=== PATIENT | female | born 1955 | race Caucasian/White ===

== ENCOUNTER → 2017-09-21 | Outpatient (REF) ==
[~2017-09-21] MED LIST: DOXY-179 PO; [UNRECOGNIZED DRUG - REMARK]
== END ==
DX: Z02.9 Encounter for administrative examinations, unspecified (principal)

== ENCOUNTER → 2017-09-28 | Outpatient (CLI) | payer OTHER ==
--- NOTE | 2017-09-29 08:12 | RADIOLOGY IMAGING REPORT ---
FACILITY: [facility] [place] PATIENT NAME: DONNY LEE : [id number] MR: [id number] V: [id number] EXAM DATE: ORDERING PHYSICIAN: JUAN JOSÉ BAHENA TECHNOLOGIST: Lesa Mayfield PROCEDURE:BILATERAL DIGITAL SCREENING MAMMOGRAM WITH CAD ASSISTED INTERPRETATION & 3D TOMOSYNTHESIS COMPARISON:Prior mammograms 09/23/12. INDICATIONS:SCREENING FINDINGS: Mildly heterogeneous fibroglandular tissue is seen throughout the breasts. The parenchymal pattern has remained stable allowing for difference in mammographic technique & patient positioning. There is no evidence of malignant appearing mass, malignant appearing calcifications or other secondary sign of malignancy in either breast. DIAGNOSTIC CATEGORY 1--NEGATIVE. RECOMMENDATIONS: ROUTINE MAMMOGRAM AND CLINICAL EVALUATION. IMPRESSION: BIRADS 1: Negative No significant abnormality is seen. Dictated by: Dayna Cortés M.D. on 09/28/2017 at 11:18 Transcribed by: SANDEEP on 09/28/2017 at 14:29 Approved by: Dayna Cortés M.D. on 09/29/2017 at 8:12 [facility]
== END ==
LOC: MAMO 01:11
PROVIDERS: ATTEND Internal Medicine
DX: Z12.31 Encounter for screening mammogram for malignant neoplasm of breast (principal)
CPT/HCPCS: 77063; 77067

== ENCOUNTER → 2017-11-05 | Outpatient (CLI) | payer OTHER | LOC: LAB 10:58 | PROVIDERS: ATTEND Internal Medicine | DX: R94.6 Abnormal results of thyroid function studies (principal) | CPT/HCPCS: 36415; 84436; 84443; 84481 ==

== ENCOUNTER 2018-07-01 15:02 | Emergency (ER) | payer OTHER ==
[~2018-07-01 15:02] MED LIST changes: +HYDR30CR10 TP
[2018-07-01] MEDS ORDERED: NS(*) 0.9% 1000 ML BAG 1,000 ML IV ONE (15:25)
[2018-07-01 15:30] LABS: PLATELET COUNT, AUTOMATED 311 K/uL (150-450)
--- NOTE | 2018-07-01 15:42 | EKG ---
FACILITY: [facility] [place] PATIENT NAME: DONNY LEE : [id number] MR: [id number] V: [id number] EXAM DATE: ORDERING PHYSICIAN: KELVIN BUTT TECHNOLOGIST: Test Reason : Altered mental status Blood Pressure : / mmHG Vent. Rate : 095 BPM Atrial Rate : 095 BPM P-R Int : 102 ms QRS Dur : 094 ms QT Int : 364 ms P-R-T Axes : 051 044 021 degrees QTc Int : 457 ms Sinus rhythm with short CA Nonspecific ST and T wave abnormality Abnormal ECG When compared with ECG of 17-SEP-2016 09:03, Previous ECG has undetermined rhythm, needs review Nonspecific T wave abnormality, worse in Anterior leads Referred By: Confirmed By:. READING PANEL
--- NOTE | 2018-07-01 15:47 | ER Report ---
History and Physical Time Seen By MD: 15:10 Hx. of Stated Complaint: disoriented, [place] not remember [place] does not recall an injury HPI/ROS CHIEF COMPLAINT: Altered mental status HISTORY OF PRESENT ILLNESS: Patient reports that she has been on the hCG diet and along with hCG drops is taking in approximately 500 tanner per day. In the face of this, she was skiing today and had not taken a fall, but as she was going to get lunch, became confused. She had an approximately 15 minute period where she did not recall where she was or what she was doing. Ultimately, she was called on the phone and had to describe where she was so that the family could come and find her. They decided to present to the emergency department. At this point, patient is no longer confused and has eaten some food, however she still does not recall the about [place] At no time did she or her family note slurred speech, focal weakness, fall, headache, chest pain, shortness breath, or any other concerning symptoms. She has never had an episode like this before that she recalls. REVIEW OF SYSTEMS: Constitutional: No fever, no chills. Eyes: No discharge. ENT: No sore throat. Cardiovascular: No chest pain, no palpitations. Respiratory: No cough, no shortness of breath. Gastrointestinal: No abdominal pain, no vomiting. Genitourinary: No hematuria. Musculoskeletal: No back pain. Skin: No rashes. Neurological: No headache. Remainder of the 14 system rev: Yes Allergies: Coded Allergies: prochlorperazine (Verified Allergy, Intermediate, Extrapyramidal rxn, 09/23/17) Home Meds Active Scripts Hydrocortisone 2.5 % 30 GM CREAM (Hydrocortisone 2.5 % 30 GM CREAM) 2.5 % Cream.appl, 1 CASEY TP BID for 30 Days, #1 TUBE 0 Refills Prov:CARLOS MANUEL BOONE NPC 03/31/18 Reviewed Nurses Notes: Yes Smoking Status: Never Smoker Exposure to Second Hand Smoke?: Yes (childhood, father smoked) Hx Substance Use Disorder: No Hx Alcohol Use: No Constitutional Vital Sign - Last 24 Hours 07/01/18 15:07 Temp 97.7 Pulse 105 Resp 16 B/P (MAP) 152/95 Pulse Ox 97 O2 Delivery Room Air Physical Exam General Appearance: The patient is alert, has no immediate need for airway protection and no signs of toxicity. Eyes: Pupils equal and round no pallor or injection. ENT, Mouth: Mucous membranes are moist. Respiratory: There are no retractions, lungs are clear to auscultation. Cardiovascular: Regular rate and rhythm. Gastrointestinal: Abdomen is soft and non tender, no masses, bowel sounds normal. Neurological: alert, oriented, moves all ext, no focal weakness, cn ii-xii intact, nl fnf, no ddk, nl hsk. Warm and dry, no rashes. Musculoskeletal: Neck is supple non tender. Extremities are nontender, nonswollen and have full range of motion. DIFFERENTIAL DIAGNOSIS: After history and physical exam differential diagnosis was considered for cva, hypoglycemia, electrolyte abnormality, arrhythmia, acs, or other emergent etiology. Medical Decision Making Data Points Result Diagram: 07/01/18 1512 07/01/18 1512 Laboratory Hematology Test 07/01/18 15:12 07/01/18 15:30 Red Blood Count 5.22 M/uL (4.17-5.56) Mean Corpuscular Volume 88.5 fL (80.0-96.0) Mean Corpuscular Hemoglobin 29.6 pg (26.0-33.0) Mean Corpuscular Hemoglobin Concent 33.5 g/dL (32.0-36.0) Red Cell Distribution Width 13.4 % (11.5-14.5) Mean Platelet Volume 7.6 fL (7.2-11.1) Neutrophils (%) (Auto) 69.0 % (39.4-72.5) Lymphocytes (%) (Auto) 22.5 % (17.6-49.6) Monocytes (%) (Auto) 6.8 % (4.1-12.4) Eosinophils (%) (Auto) 1.0 % (0.4-6.7) Basophils (%) (Auto) 0.7 % (0.3-1.4) Nucleated RBC Relative Count (auto) 0.0 /100WBC Neutrophils # (Auto) 5.0 K/uL (2.0-7.4) Lymphocytes # (Auto) 1.6 K/uL (1.3-3.6) Monocytes # (Auto) 0.5 K/uL (0.3-1.0) Eosinophils # (Auto) 0.1 K/uL (0.0-0.5) Basophils # (Auto) 0.1 K/uL (0.0-0.1) Nucleated RBC Absolute Count (auto) 0.00 K/uL Sodium Level 139 mmol/L (137-145) Potassium Level 3.5 mmol/L (3.5-5.0) Chloride Level 104 mmol/L (98-107) Carbon Dioxide Level 25 mmol/L (22-31) Blood Urea Nitrogen 13 mg/dl (7-18) Creatinine 1.00 mg/dl (0.52-1.04) Glomerular Filtration Rate Calc 56.0 Random Glucose 78 mg/dl (75-110) Calcium Level 9.6 mg/dl (8.4-10.2) Magnesium Level 2.1 mg/dl (1.7-2.2) Total Bilirubin 0.3 mg/dl (0.2-1.3) Aspartate Amino Transf (AST/SGOT) 30 U/L (0-35) Alanine Aminotransferase (ALT/SGPT) 28 U/L (0-56) Alkaline Phosphatase 67 U/L (0-126) Total Protein 7.8 g/dl (6.3-8.2) Albumin 4.9 g/dl (3.5-5.0) Urine Color Colorless Urine Clarity Clear Urine pH 7.0 pH (4.8-9.5) Urine Specific [place] 1.002 Urine Protein Negative mg/dL (NEGATIVE) Urine Glucose (UA) Negative mg/dL (NEGATIVE) Urine Ketones Negative mg/dL (NEGATIVE) Urine Blood Negative (NEGATIVE) Urine Nitrite Negative (NEGATIVE) Urine Bilirubin Negative (NEGATIVE) Urine Urobilinogen Negative mg/dL (0.2-1.9) Urine Leukocyte Esterase Negative (NEGATIVE) Urine RBC <1 /HPF (0-2/HPF) Urine WBC None /HPF (0-5/HPF) Urine Squamous Epithelial Cells None /LPF (</=FEW) Urine Bacteria Negative /HPF (NONE-FEW) Urine Mucus None /HPF (NONE-FEW) Chemistry Test 07/01/18 15:12 07/01/18 15:30 White Blood Count 7.2 k/uL (4.5-11.0) Red Blood Count 5.22 M/uL (4.17-5.56) Hemoglobin 15.5 g/dL (12.0-16.0) Hematocrit 46.2 % (34.0-47.0) Mean Corpuscular Volume 88.5 fL (80.0-96.0) Mean Corpuscular Hemoglobin 29.6 pg (26.0-33.0) Mean Corpuscular Hemoglobin Concent 33.5 g/dL (32.0-36.0) Red Cell Distribution Width 13.4 % (11.5-14.5) Platelet Count 311 K/uL (150-450) Mean Platelet Volume 7.6 fL (7.2-11.1) Neutrophils (%) (Auto) 69.0 % (39.4-72.5) Lymphocytes (%) (Auto) 22.5 % (17.6-49.6) Monocytes (%) (Auto) 6.8 % (4.1-12.4) Eosinophils (%) (Auto) 1.0 % (0.4-6.7) Basophils (%) (Auto) 0.7 % (0.3-1.4) Nucleated RBC Relative Count (auto) 0.0 /100WBC Neutrophils # (Auto) 5.0 K/uL (2.0-7.4) Lymphocytes # (Auto) 1.6 K/uL (1.3-3.6) Monocytes # (Auto) 0.5 K/uL (0.3-1.0) Eosinophils # (Auto) 0.1 K/uL (0.0-0.5) Basophils # (Auto) 0.1 K/uL (0.0-0.1) Nucleated RBC Absolute Count (auto) 0.00 K/uL Glomerular Filtration Rate Calc 56.0 Calcium Level 9.6 mg/dl (8.4-10.2) Magnesium Level 2.1 mg/dl (1.7-2.2) Total Bilirubin 0.3 mg/dl (0.2-1.3) Aspartate Amino Transf (AST/SGOT) 30 U/L (0-35) Alanine Aminotransferase (ALT/SGPT) 28 U/L (0-56) Alkaline Phosphatase 67 U/L (0-126) Total Protein 7.8 g/dl (6.3-8.2) Albumin 4.9 g/dl (3.5-5.0) Urine Color Colorless Urine Clarity Clear Urine pH 7.0 pH (4.8-9.5) Urine Specific [place] 1.002 Urine Protein Negative mg/dL (NEGATIVE) Urine Glucose (UA) Negative mg/dL (NEGATIVE) Urine Ketones Negative mg/dL (NEGATIVE) Urine Blood Negative (NEGATIVE) Urine Nitrite Negative (NEGATIVE) Urine Bilirubin Negative (NEGATIVE) Urine Urobilinogen Negative mg/dL (0.2-1.9) Urine Leukocyte Esterase Negative (NEGATIVE) Urine RBC <1 /HPF (0-2/HPF) Urine WBC None /HPF (0-5/HPF) Urine Squamous Epithelial Cells None /LPF (</=FEW) Urine Bacteria Negative /HPF (NONE-FEW) Urine Mucus None /HPF (NONE-FEW) Urinalysis Test 07/01/18 15:30 Urine Color Colorless Urine Clarity Clear Urine pH 7.0 pH (4.8-9.5) Urine Specific [place] 1.002 Urine Protein Negative mg/dL (NEGATIVE) Urine Glucose (UA) Negative mg/dL (NEGATIVE) Urine Ketones Negative mg/dL (NEGATIVE) Urine Blood Negative (NEGATIVE) Urine Nitrite Negative (NEGATIVE) Urine Bilirubin Negative (NEGATIVE) Urine Urobilinogen Negative mg/dL (0.2-1.9) Urine Leukocyte Esterase Negative (NEGATIVE) Urine RBC <1 /HPF (0-2/HPF) Urine WBC None /HPF (0-5/HPF) Urine Squamous Epithelial Cells None /LPF (</=FEW) Urine Bacteria Negative /HPF (NONE-FEW) Urine Mucus None /HPF (NONE-FEW) EKG/Imaging EKG Interpretation 12 lead EKG: Rhythm: normal sinus rhythm [place]: normal QRS: normal ST segments: normal short NV, borderline qt, no st elevations or depressions. Monitor Interpretation: Normal Sinus Rhythm ED Course/Re-evaluation ED Course 63-year-old female presents after skiing all morning and having episode of confusion while she was in the cafeteria and gathering food. This lasted about 15 minutes and resolve spontaneously (or as she ate), and has not repeated in the emergency department. Detailed neurologic exam is unremarkable. There are no focal findings. Labs are normal. EKG is nonischemic. Repeat blood sugar as patient has not had any sugar containing intake in the emergency department is also normal. At this point, it is reasonable for discharge. Patient is discharged with family and with strict return precautions. Decision to Disposition Date: Jul 01, 2018 Decision to Disposition Time: 16:09 Depart Departure Latest Vital Signs Vital Signs Date Time Temp Pulse Resp B/P (MAP) Pulse Ox O2 Delivery O2 Flow Rate FiO2 07/01/18 15:07 97.7 105 16 152/95 97 Room Air Impression: Primary Impression: Transient alteration of awareness Condition: Improved Disposition: HOME OR SELF-CARE Referrals: JUAN JOSÉ BAHENA MD (PCP) Patient Instructions: Altered Mental Status (ED) Additional Instructions: As we discussed, please return for repeat symptoms or any concerning symptoms. I recommend you take in sugar-based food or drink if you start to feel lightheaded. Please return immediately for chest pain, trouble breathing, concerning headaches or any other concerns. KELVIN UBTT MD Jul 01, 2018 15:47
[2018-07-01 16:20] VITALS: BP 128/38
== END 2018-07-01 16:35 | disposition home or self-care (01) ==
LOC: ER 15:13
DX: R40.4 Transient alteration of awareness (principal)
CPT/HCPCS: 36416; 81001; 82948; 83735; 85025; 93005; 96360; 99283; J7030; 82040; 82247; 82310; 82374; 82435; 82565; 82947; 84075; 84132; 84155; 84295; 84450; 84460; 84520

== ENCOUNTER 2018-07-25 16:00 | Outpatient (RCR) | payer OTHER ==
--- NOTE | 2018-06-28 17:41 | PT INITIAL EVALUATION ---
MEDICAL DIAGNOSIS: M79.672 Pain in L foot TREATMENT DIAGNOSIS: Same, L plantar fasciitis DATE OF ONSET: 02/14/18 SUBJECTIVE: Lashay Wellington presents to PT for 5 month insidious onset of L plantar heel pain with static standing, first step in the morning, worse by the end of work, 6-7/10 pain scale, ache. She also reports medial calcaneal burning intermittently, unknown causalgia. She denies injuries to her LE's, uses good sneakers with blue Superfeet orthotics. REHAB PROBLEM LIST: Increased Pain Decreased ROM Decreased Strength Decreased Mobility Decreased Gait PREVIOUS MEDICAL HISTORY: R orbital fracture with reconstruction, R biceps reattachment, tendon repair. OCCUPATION: time study analyst rd lab technician, [employer]. OBJECTIVE: Posture: Cavus feet. ROM: Tight hips in 90 deg. flexion, WNL at 0 deg. hip extension, ankle PROM DF in rearfoot neutral gastrocs R -10 deg., L -5 deg., soleus B -5 degrees. Lumbar flexion WNL, extension 75%, facet pain, no heel pain either direction. Feet: rear feet: L inverted 4 degrees, L 0 degrees, B forefoot valgus 5 degrees. Orthotics are posted to 0 degree rear feet and forefeet. Strength: Gastroc 4-/5, soleus 4+/5, short toe flexors 5/5, peroneals, post. tib. 4/5 B. Palpation: Painful at the L heel fat pad, not at ruby medial band of the plantar fascia. Special Tests: Negative SLR, B, tight hamstrings, R 65 deg., L 70 degrees. Grade II lateral ankle ligament laxity, negative drawers. Tinel tap tarsal tunnels, plantar nerve at the medial calcaneal mcpherson. Mobility: Hypomobile feet and ankle joints. Gait: Heavy heelstrike B, pronation> midstance L foot, ER 20 deg, R less pronation beyond midstance, heel whip B. ASSESSMENT: Lashay Wellington presents with insidious onset L plantar fascia at the fat pad from repetitive years of cavus foot structure, altered feet biomechanics creating repetitive stretch to the plantar fascia. She's started on a LE stretching HEP. I posted her L orthotic 2 degrees to reduce the stretch to her L plantar fascia. Short Term Goals 4-6 weeks: L heel pain first step in ruby morning 06/26, at the end of her work shift 3-08/24, PROM B ankles 10 deg. B. Patient's Goals Stop heel pain. PLAN: Patient to be seen for Manual Therapy/STM/MET Strengthening/condition Ice/Heat Range of Motion Spinal Stabilization Stretching Neuromuscular Re-ed Electrical Stim Gait Trg/Balance Trg Home Exercise Program 2x/Week for 6 Weeks Thank you for this referral. If you have any questions, comments, or concerns about this report or plan, please contact me at . [facility]
== END 2018-07-25 18:00 | disposition home or self-care (01) ==
LOC: PT 16:00
PROVIDERS: ATTEND Internal Medicine
DX: M72.2 Plantar fascial fibromatosis (principal)
CPT/HCPCS: 97161

== ENCOUNTER → 2018-11-29 | Outpatient (CLI) | payer OTHER ==
[~2018-11-29] MED LIST changes: +ATOV1TAB17 PO; +CHOL100052 PO; +CYAN500T39 PO; +FERR324T16 PO
== END ==
LOC: LAB 11:06
PROVIDERS: ATTEND Emergency Medicine
DX: E03.9 Hypothyroidism, unspecified (principal); R20.9 Unspecified disturbances of skin sensation; D64.9 Anemia, unspecified
CPT/HCPCS: 36415; 82306; 82607; 82728; 83540; 83550; 84439; 84443; 84481; 86376; 86800